=== PATIENT | female | born 1945 | race Caucasian/White ===

== ENCOUNTER 2016-12-04 11:24 | Emergency (ER) | payer OTHER | END 2016-12-04 13:30 | disposition home or self-care (01) | LOC: FER 11:24 | DX: S40.011A Contusion of right shoulder, initial encounter (principal); M25.532 Pain in left wrist; W19.XXXA Unspecified fall, initial encounter; Y92.009 Unspecified place in unspecified non-institutional (private) residence as the place of occurrence of the external cause | CPT/HCPCS: 73030; 73110; 99283 ==